=== PATIENT | female | born 1990 | race Caucasian/White ===

== ENCOUNTER 2021-01-02 08:32 | Emergency (ER) | payer SELFPAY ==
[~2021-01-02] VITALS: Ht 162.6 cm; Wt 63.6 kg
[~2021-01-02 08:32] MED LIST: NORCO 325 MG-51 TAB PO
[2021-01-02 09:11] VITALS: BP 102/70; TEMP 101.7
[2021-01-02 10:45] VITALS: PULSE 89
== END 2021-01-02 10:45 | disposition home or self-care (01) ==
LOC: COL.ER 08:32 → EDBD 08:41 → COL.ER 08:41
DX: U07.1 COVID-19 (principal)